=== PATIENT | female | born 1980 | race Caucasian/White ===

== ENCOUNTER 2017-02-16 17:57 | Emergency (ER) | payer OTHER ==
[2017-02-16 17:58] VITALS: BP 153/99; PULSE 116; RESP 16; TEMP 98.6; O2SAT 95
[2017-02-16 18:00] VITALS: PULSE 99
[2017-02-16] MEDS ORDERED: HUMI40KI SQ (18:12)
[2017-02-16] MEDS ORDERED: PENT500C2 PO (18:12)
[2017-02-16] MEDS ORDERED: LIDOCAINE HCL 1% 20 ML VIAL INFIL ONE (18:45)
[2017-02-16] MEDS ORDERED: LIDOCAINE HCL 1% PF 30 ML VIAL ONE (18:53)
[2017-02-16] MEDS ORDERED: PERC5TAB12 PO (19:27)
[2017-02-16] MEDS ORDERED: AUGM875T3 PO (19:27)
--- NOTE | 2017-02-16 19:28 | PD ---
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 She reports symptoms were worse over past 2 days. She says it feels like her skin is starting apart. She has two setons from previous drainages. She is in the process of establishing a colorectal here. History Past Medical History Narrative Medical Perirectal abscesses and fistulas Tetanus Vaccination: < 5 Years Past Surgical History Surgical History: No Previous Surgery Social History Alcohol Use: No Tobacco Use: Yes Allergies-Medications (Allergen,Severity, Reaction): Coded Allergies: No Known Allergies (Unverified , 02/16/17) Reported Meds & Prescriptions Reported Meds & Active Scripts Active Percocet (Oxycodone-Acetaminophen) 5-325 mg Tab 1-2 Tab PO Q6H PRN Augmentin (Amoxicillin-Clavulanate) 875-125 Mg Tab 1 Tab PO BID Reported Humira 2-Pack Inj (Adalimumab 2-Pack Inj) 40 Mg/0.8 Ml Syr 40 Mg SQ Q14D Pentasa (Mesalamine) 500 Mg Caper 1,000 Mg PO BID Review of Systems Except as stated in HPI: all other systems reviewed are Neg Physical Exam Narrative GENERAL: Well-appearing 36-year-old woman, uncomfortable, nontoxic. SKIN: Warm and dry. CARDIOVASCULAR: Warm and well perfused. RESPIRATORY: Normal rate and effort. ABDOMINAL: Abdomen soft, nontender nondistended. RECTAL: Patient has 2 tied plastic drainage setons in the rectum. Near the rectum, removed from it by about 2 cm, is a small area of superficial-appearing fluctuance. This appears to be near spontaneous drainage. There is some discoloration. There is a lot of tenderness around the area. NEUROLOGICAL: Awake and alert. No gross deficits. Data Data Last Documented VS Vital Signs Date Time Temp Pulse Resp B/P (MAP) Pulse Ox O2 Delivery O2 Flow Rate FiO2 02/16/17 19:41 02/16/17 18:00 99 02/16/17 17:58 98.6 16 95 Orders Orders Fentanyl Inj (Fentanyl Inj) (02/16/17 18:45) Lidocaine 1% Inj (Xylocaine 1% Inj) (02/16/17 18:45) Lidocaine Pf 1% Inj (Xylocaine-Mpf 1% In (02/16/17 18:53) Ed Discharge Order (02/16/17 19:28) MDM Medical Decision Making Medical Screen Exam Complete: Yes Emergency Medical Condition: Yes Differential Diagnosis Perianal abscess, Rectal abscess, fistula, other Narrative Course Medical decision-making 36-year-old woman with a complicated. Rectal abscesses in the past, presents with what appears to be a superficial perianal abscess. Given her history, suspicion is that it is somehow related and a deeper fashion. It appears just the about the spontaneously rupture. There is no colorectal surgeon on-call. Options including transfer to [place] or [place], do nothing, or attempts and drainage of the superficial-appearing abscess is remote from the rectum. I discussed these options with the patient, I recommended that we proceed with simple drainage of the abscess. I think this is reasonable given its distance from the rectum itself. She has an appointment scheduled with a colorectal surgeon this week. Procedures Procedure Narrative INCISION AND DRAINAGE OF ABSCESS: The area was prepped and was sterilely draped. A subcutaneous wheal of % Xylocaine 1 with a total number 1 mL was used to anesthetize the area. The area was properly anesthetized. A number 11 scalpel was used to make a 0.5-cm incision across the area of the abscess. Diagnosis Primary Impression: Perianal abscess Additional Instructions: Take antibiotics as prescribed. Follow-up with colorectal surgery as discussed. Use Percocet if needed for pain. Continue sitz baths as discussed. Return to the emergency department for any worsening pain, swelling, fevers, or any other new or worsening symptoms. Med/Other Pt SpecificInfo: Prescription(s) given Scripts Oxycodone-Acetaminophen (Percocet) 5-325 mg Tab 1-2 TAB PO Q6H Y for PAIN, #12 TAB 0 Refills Prov: Kelvin Reveles MD 02/16/17 Amoxicillin-Clavulanate (Augmentin) 875-125 Mg Tab 1 TAB PO BID for Infection, #10 TAB 0 Refills Prov: Kelvin Reveles MD 02/16/17 Disposition: 01 DISCHARGE HOME Condition: Stable Kelvin Reveles MD Feb 16, 2017 19:28
== END 2017-02-16 19:50 | disposition home or self-care (01) ==
LOC: NEPD 17:57
DX: K61.0 Anal abscess (principal); Z72.0 Tobacco use; Z79.899 Other long term (current) drug therapy
CPT/HCPCS: 10060; 96372; 99284; J3010